=== PATIENT | male | born 1990 | race African-American/Black ===

== ENCOUNTER 2020-03-24 18:09 | Emergency (ER) | payer SELFPAY ==
--- NOTE | 2020-03-24 19:37 | RAD ---
PORTABLE CHEST: History: Positive Covid FINDINGS: Lungs appear clear. No evidence of infiltrate. Heart and mediastinum appear normal. IMPRESSION: No acute process identified. POS: AGW
[2020-03-25 08:42] LABS: SARS-CoV-2 MS2 Positive; SARS-CoV-2 N Gene Negative; SARS-CoV-2 S Gene Negative; SARS-CoV-2 by NAA Not Detected (NotDetected); SARS-CoV-2 orf1ab Negative
--- NOTE | 2020-03-29 17:53 | EKG ---
Test Reason : Blood Pressure : / mmHG Vent. Rate : 105 BPM Atrial Rate : 105 BPM P-R Int : 146 ms QRS Dur : 084 ms QT Int : 318 ms P-R-T Axes : 079 [id number] 007 degrees QTc Int : 420 ms Sinus tachycardia Possible Left atrial enlargement Left ventricular hypertrophy Cannot rule out Inferior infarct , age undetermined Abnormal ECG Confirmed by MICHAEL WADE, CHAYO ([id number]), newspaper photo editor JULISSA SHARMA ([id number]) on 03/29/2020 5:52:51 PM Referred By: Confirmed By:CHAYO RODRIGUEZ MD
== END 2020-03-24 19:30 | disposition home or self-care (01) ==
LOC: ERS 18:09
DX: R05 Cough (principal); M79.10 Myalgia, unspecified site; Z20.828 Contact with and (suspected) exposure to other viral communicable diseases; F17.210 Nicotine dependence, cigarettes, uncomplicated; F41.9 Anxiety disorder, unspecified
CPT/HCPCS: 71045; 87635; 93005; U0003